=== PATIENT | female | born 1985 | race Caucasian/White ===

== ENCOUNTER 2017-08-23 19:48 | Emergency (ER) | payer BC ==
[2017-08-23 20:27] VITALS: O2SAT 98
[2017-08-23] MEDS ORDERED: Ativan 2 MG/1 ML VIAL IV ONE (20:36)
[2017-08-23] MEDS ORDERED: Ativan 2 MG/1 ML VIAL ONE (20:39)
--- NOTE | 2017-08-23 20:46 | ERPHSYRPT ---
- History of Present Illness Time Seen by Provider: 08/23/17 20:12 Historian: patient Exam Limitations: no limitations Patient Subjective Stated Complaint: pain in left arm and shoulder that started from chest pain Triage Nursing Assessment: Pt A&O x3, vitals wnl, pulses normal, states that she has pain in her left arm and shoulder that has radiated from her chest hurting, has had a brother from heart disease, pt calm, stated that she was driving home from work when the pain started, no edema, lungs clear, sinus rhythm, doesn't appear to be in any distress Physician History: Pt started c/o left arm pain radiating to her left neck 2-3 hours ago, when driving home. She denies cough, SOB, nausea, vomiting, dizziness, diaphoresis, other complaints. She had similar complaints, she underwent heart US, diagnosed with some kind of heart condition, and started on Coreg and Lisinopril, denies smoking, never smoked, denies family history of coronary disease. She states, her arm pain is not aggravated by movement or breathing, and resolved usually after few minutes. Timing/Duration: hour(s) (3) Activities at Onset: other (driving) Quality: aching Location: other (left arm) Chest Pain Radiation: neck Severity of Pain-Max: moderate Severity of Pain-Current: mild Modifying Factors: Improves With: nothing Associated Symptoms: denies symptoms Prior Chest Pain/Cardiac Workup: echocardiography Nitro Today/Relief: no nitro taken today Aspirin Treatment Today: no aspirin today Allergies/Adverse Reactions: No Known Drug Allergies Allergy (Verified 08/23/17 20:34) Home Medications: Buspirone HCl [Buspar] 10 mg PO TID PRN 08/23/17 [History] Carvedilol 3.125 mg [Coreg 3.125 MG] 3.125 mg PO BID 08/23/17 [History] Escitalopram Oxalate 10 mg PO DAILY 08/23/17 [History] Lisinopril/Hctz 20/12.5 mg [Lisinopril/ Hctz 20/12.5] 20 mg PO DAILY 08/23/17 [ History] Norethindrone [Jencycla] 0.35 mg PO DAILY 08/23/17 [History] Hx Tetanus, Diphtheria Vaccination/Date Given: Yes Hx Influenza Vaccination/Date Given: No Hx Pneumococcal Vaccination/Date Given: No - Review of Systems Constitutional: No Symptoms Respiratory: No Symptoms Cardiac: Chest Pain All Other Systems: Reviewed and Negative - Past Medical History Pertinent Past Medical History: Yes Cardiac History: Hypertension - Past Surgical History Past Surgical History: Yes Musculoskeletal: Orthopedic Surgery Female Surgical History: Section Other Surgical History: r knee - tonsils - Social History Smoking Status: Never smoker Exposure to second hand smoke: No Drug Use: none Patient Lives Alone: No - Female History Hx Last Menstrual Period: 08/21/2017 Hx Now: No - Nursing Vital Signs Nursing Vital Signs: Initial Vital Signs Temperature 98.4 F 08/23/17 20:14 Pulse Rate 67 08/23/17 20:14 Blood Pressure 130/57 08/23/17 20:14 O2 Sat by Pulse Oximetry 98 08/23/17 20:14 Pain Scale Pain Intensity 2 - Physical Exam General Appearance: no apparent distress Eye Exam: eyes nml inspection Ears, Nose, Throat Exam: normal ENT inspection Neck Exam: normal inspection, non-tender, supple, No carotid bruit, No JVD Respiratory Exam: normal breath sounds, lungs clear, airway intact, No chest tenderness Cardiovascular Exam: regular rate/rhythm, normal heart sounds, normal peripheral pulses, No murmur Gastrointestinal/Abdomen Exam: soft, normal bowel sounds Extremity Exam: normal inspection, normal range of motion, No calf tenderness, No gerald's sign Neurologic Exam: alert, oriented x 3, cooperative, normal mood/affect Skin Exam: normal color, warm, dry, No rash Lymphatic Exam: No adenopathy SpO2 Interpretation: normal SpO2: 98 Oxygen Delivery: Room Air - Course Nursing assessment & vital signs reviewed: Yes EKG Interpreted by Me: RATE (73/min), NORMAL AXIS, NORMAL INTERVALS, Non- specific ST Changes, Other (repeat Ek:48 PM unchanged) Ordered Tests: Active Orders 24 hr Category Date Time Status Printing Press Operator STAT Care 08/23/17 20:24 Active EKG-ER Only STAT Care 08/23/17 20:23 Active EKG-ER Only STAT Care 08/23/17 22:42 Active IV Insertion STAT Care 08/23/17 20:23 Active Oxygen-ED Only NASAL CANNULA 2 lpm Care 08/23/17 20:23 Active CHEST 1 VIEW (PORTABLE) Stat Exams 08/23/17 20:24 Taken CBC W DIFF Stat Lab 08/23/17 20:45 Completed CK-Creatinine Phosphokinase Stat Lab 08/23/17 20:45 Completed CMP Stat Lab 08/23/17 20:45 Completed D-DIMER QUANTITATION Stat Lab 08/23/17 20:45 Completed HCG,QUALITATIVE URINE Stat Lab 08/23/17 20:24 Uncollected NT PRO BNP Stat Lab 08/23/17 20:45 Completed PROTIME WITH INR Stat Lab 08/23/17 20:45 Completed PTT Stat Lab 08/23/17 20:45 Completed TROPONIN Q3H Lab 08/23/17 20:45 Completed TROPONIN Q3H Lab 08/23/17 23:05 Completed TROPONIN Q3H Lab 08/24/17 02:30 Ordered TROPONIN Q3H Lab 08/24/17 05:30 Ordered TROPONIN Q3H Lab 08/24/17 08:30 Ordered Urine Triage Profile Stat Lab 08/23/17 20:24 Uncollected Medication Summary Discontinued Medications Generic Name Dose Route Start Last Admin Trade Name Freq PRN Reason Stop Dose Admin Lorazepam 0.5 mg 08/23/17 20:36 08/23/17 20:41 Ativan 2 Mg/1 Ml Vial IV 08/23/17 20:37 0.5 mg STAT ONE Administration Lorazepam Confirm 08/23/17 20:39 Ativan 2 Mg/1 Ml Vial Administered 08/23/17 20:40 Dose 2 mg .ROUTE .STK-MED ONE Lab/Rad Data: Laboratory Result Diagrams 08/23/17 20:45 08/23/17 20:45 Laboratory Results 08/23/17 08/23/17 08/23/17 Range/Units 23:05 20:45 20:45 WBC (4.0-10.5) K/mm3 RBC (4.1-5.4) M/mm3 Hgb (12.0-16.0) gm/dl Hct (35-47) % MCV (78-100) fl MCH (26-32) pg MCHC (32-36) g/dl RDW (11.5-14.0) % Plt Count (150-450) K/mm3 MPV (6-9.5) fl Gran % (36.0-66.0) % Eos # (Auto) (0-0.5) Absolute Lymphs (auto) (1.0-4.6) Absolute Monos (auto) (0.0-1.3) Lymphocytes % (24.0-44.0) % Monocytes % (0.0-12.0) % Eosinophils % (0.00-5.0) % Basophils % (0.0-0.4) % Absolute Granulocytes (1.4-6.9) Basophils # (0-0.4) PT 11.3 (9.95-12.35) SECONDS INR 0.97 (0.8-3.0) APTT 33.0 (25.3-37.0) SECONDS D-Dimer 318 (215-500) ng/mL Sodium (137-145) mmol/L Potassium (3.5-5.1) mmol/L Chloride (98-107) mmol/L Carbon Dioxide (22-30) mmol/L Anion Gap (5-15) MEQ/L BUN (7-17) mg/dL Creatinine (0.52-1.04) mg/dL Estimated GFR ML/MIN Glucose (74-106) mg/dL Calcium (8.4-10.2) mg/dL Total Bilirubin (0.2-1.3) mg/dL AST (14-36) U/L ALT (0-35) U/L Alkaline Phosphatase (38-126) U/L Creatine Kinase (30-135) U/L Troponin I < 0.012 < 0.012 (0.000-0.034) ng/mL NT-Pro-B Natriuret Pep (0-450) pg/mL Serum Total Protein (6.3-8.2) g/dL Albumin (3.5-5.0) g/dL 08/23/17 08/23/17 Range/Units 20:45 20:45 WBC 12.3 H (4.0-10.5) K/mm3 RBC 5.26 (4.1-5.4) M/mm3 Hgb 11.4 L (12.0-16.0) gm/dl Hct 37.3 (35-47) % MCV 70.9 L (78-100) fl MCH 21.6 L (26-32) pg MCHC 30.6 L (32-36) g/dl RDW 16.3 H (11.5-14.0) % Plt Count 302 (150-450) K/mm3 MPV 10.1 H (6-9.5) fl Gran % 64.1 (36.0-66.0) % Eos # (Auto) 0.41 (0-0.5) Absolute Lymphs (auto) 3.31 (1.0-4.6) Absolute Monos (auto) 0.66 (0.0-1.3) Lymphocytes % 27.0 (24.0-44.0) % Monocytes % 5.4 (0.0-12.0) % Eosinophils % 3.3 (0.00-5.0) % Basophils % 0.2 (0.0-0.4) % Absolute Granulocytes 7.85 H (1.4-6.9) Basophils # 0.03 (0-0.4) PT (9.95-12.35) SECONDS INR (0.8-3.0) APTT (25.3-37.0) SECONDS D-Dimer (215-500) ng/mL Sodium 144 (137-145) mmol/L Potassium 3.8 (3.5-5.1) mmol/L Chloride 105 (98-107) mmol/L Carbon Dioxide 28 (22-30) mmol/L Anion Gap 14.8 (5-15) MEQ/L BUN 14 (7-17) mg/dL Creatinine 0.78 (0.52-1.04) mg/dL Estimated GFR > 60.0 ML/MIN Glucose 98 (74-106) mg/dL Calcium 9.4 (8.4-10.2) mg/dL Total Bilirubin < 0.10 L (0.2-1.3) mg/dL AST 18 (14-36) U/L ALT 20 (0-35) U/L Alkaline Phosphatase 92 (38-126) U/L Creatine Kinase 58 (30-135) U/L Troponin I (0.000-0.034) ng/mL NT-Pro-B Natriuret Pep 47.2 (0-450) pg/mL Serum Total Protein 7.0 (6.3-8.2) g/dL Albumin 3.8 (3.5-5.0) g/dL - Progress Progress: improved Air Movement: good Progress Note: 08/23/17 23:53 Pain has resolved, patient feels better, no chest pain or SOB, dizziness, stable. I explained our results to her and her mother, they agreed with the plan to discharge her and follow up with her PCP in 2-3 days, will prescribe Flexeril and Ultram 50 mg PO Q6h PRN for pain #10, Counseled pt/family regarding: lab results, diagnosis, need for follow-up, rad results - Departure Time of Disposition: 23:55 Departure Disposition: Home Clinical Impression: Cervical radiculopathy Condition: Stable Critical Care Time: No Referrals: NIKKI LANCASTER [Primary Care Provider] - Instructions: Atypical Chest Pain, Herniated Disc, Radiculopathy (DC) Additional Instructions: Rest x 2-3 days, apply moist heat to painful muscles, return if severe pain, severe arm weakness, numbness, or severe chest pain, shortness of breath, dizziness! Prescriptions: Cyclobenzaprine HCl [Flexeril] 10 mg PO TID 10 Days #30 tablet
[2017-08-23 20:53] LABS: BASOPHIL % 0.2 % (0.0-0.4); Basophil (Absolute #) 0.03 (0-0.4); Eosinophil % 3.3 % (0.00-5.0); Eosinophil (Absolute #) 0.41 (0-0.5); Granulocyte Absolute (ANC) 7.85 (1.4-6.9); Granulocytes % 64.1 % (36.0-66.0); Hematocrit 37.3 % (35-47); Hemoglobin 11.4 gm/dl (12.0-16.0); Lymphocyte (Absolute #) 3.31 (1.0-4.6); Mean Cell Volume 70.9 fl (78-100); Mean Corpuscular Hgb Concent. 30.6 g/dl (32-36); Mean Platelet Volume 10.1 fl (6-9.5); Monocyte (Absolute #) 0.66 (0.0-1.3); Monocytes % 5.4 % (0.0-12.0); Platelet Count 302 K/mm3 (150-450); Red Blood Count 5.26 M/mm3 (4.1-5.4); Red Cell Distribution Width 16.3 % (11.5-14.0); White Blood Count 12.3 K/mm3 (4.0-10.5)
[2017-08-23 21:09] LABS: Mean Corpuscular Hemoglobin 21.6 pg (26-32)
[2017-08-23 21:20] LABS: INR 0.97 (0.8-3.0)
[2017-08-23 21:25] LABS: ALBUMIN 3.8 g/dL (3.5-5.0); ALKALINE PHOSPHATASE 92 U/L (38-126); ANION GAP 14.8 MEQ/L (5-15); BILIRUBIN,TOTAL < 0.10 mg/dL (0.2-1.3); BLOOD UREA NITROGEN 14 mg/dL (7-17); CHLORIDE 105 mmol/L (98-107); CK-Creatinine Phosphokinase 58 U/L (30-135); Calcium 9.4 mg/dL (8.4-10.2); Carbon Dioxide 28 mmol/L (22-30); Creatinine 1 0.78 mg/dL (0.52-1.04); Glucose 98 mg/dL (74-106); Potassium 3.8 mmol/L (3.5-5.1); SGOT/AST 18 U/L (14-36); SGPT/ALT 20 U/L (0-35); SODIUM 144 mmol/L (137-145)
[2017-08-23 21:34] LABS: NT PRO BNP 47.2 pg/mL (0-450)
[2017-08-24 00:01] VITALS: BP 129/86; PULSE 77
[2017-08-24] MEDS ORDERED: ULTRAM 50 MG ONE (00:14)
[2017-08-24] MEDS ORDERED: ULTRAM 50 MG PO ONE (00:16)
--- NOTE | 2017-08-24 08:37 | XRAY ---
Indication: Chest pain. Comparison: None Portable chest demonstrate normal heart, lungs, and bony thorax.
== END 2017-08-24 00:19 | disposition home or self-care (01) ==
LOC: ED 19:48
DX: M54.12 Radiculopathy, cervical region (principal); Z79.899 Other long term (current) drug therapy
CPT/HCPCS: 36000; 36415; 71045; 80053; 82550; 83880; 84484; 85025; 85379; 85610; 85730; 93005; 93041; 96374; 99284; J2060; A9270-GY

== ENCOUNTER 2018-08-09 05:34 | Day surgery (SDC) | payer BC ==
[2018-08-09] MEDS ORDERED: DIPRIVAN 200 MG/20 ML IV ONE (05:35)
[2018-08-09] MEDS ORDERED: Ketamine HCl 50 MG/ML IV ONE (05:35)
[2018-08-09] MEDS ORDERED: Lactated Ringers 1,000 ML IV ONE (05:59)
[2018-08-09] MEDS ORDERED: Lactated Ringers 1,000 ML IV SCH (06:00)
[2018-08-09] MEDS ORDERED: VERSED SYRUP 2 MG/ML PO ONE ×2 (06:34→07:30)
--- NOTE | 2018-08-09 08:05 | OP ---
SURGERY DATE/TIME: 08/09/201815 PREOPERATIVE DIAGNOSIS: Epigastric pain. POSTOPERATIVE DIAGNOSIS: Mild gastritis. PROCEDURE: Esophagogastroduodenoscopy with cold biopsy forceps. SURGEON: Dr. Lynch. ANESTHESIA: Medications were given by the anesthesia department. BRIEF HISTORY: The patient is a 33 year old white female who reports that she has been having problems with abdominal pain for the past year. She reports it is in the left upper quadrant of her abdomen. She reports that she takes omeprazole regularly and without it she has terrible gastroesophageal reflux. The patient denies being on aspirin, denies ibuprofen or Aleve. The patient is felt the need to have endoscopic evaluation. She was appraised of the risks of the procedure including the risk of perforation, phlebitis, untoward reaction to medication, bleeding and missed lesions. The patient verbalized her understanding and desired to have the procedure performed. DESCRIPTION OF PROCEDURE: The patient was given the medications by the anesthesia department. She had continuous pulse oximetry, ECG monitoring, intermittent blood pressure monitoring and tidal CO2 monitoring during the examination. She was placed in the left lateral decubitus position. A bite block was placed. A flexible Olympus gastroscope was used to intubate the oropharynx. The scope was easily introduced in the esophagus which appeared to be normal throughout its length. The stomach was entered where normal gastric rugal folds were seen and these distended nicely with insufflation of air. The scope was passed along the greater curvature of the stomach to the antrum. The pylorus was encountered and intubated. Duodenum inspected and found to be normal. The scope is withdrawn towards the stomach. A retroflex view was obtained of the lesser curvature, fundus and cardia regions of the stomach and these appeared to be normal. The scope was then redirected towards the gastric antrum and biopsies were obtained with cold biopsy forceps to rule out the presence of Helicobacter pylori-type organisms. The scope was then removed from the patient who tolerated the procedure well and was sent back to the hospital sore[facility] in good condition.
[2018-08-09 08:13] VITALS: O2SAT 99
[2018-08-09 08:29] VITALS: BP 122/68; PULSE 90
== END 2018-08-09 08:40 | disposition home or self-care (01) ==
LOC: SDC 05:34
PROVIDERS: ATTEND Family Medicine
DX: K29.70 Gastritis, unspecified, without bleeding (principal)
CPT/HCPCS: J2704; A9270-GY

== ENCOUNTER 2019-11-01 09:47 | Emergency (ER) | payer BC ==
[2011-12-28 05:48] VITALS: BP 140/68
--- NOTE | 2019-11-01 10:01 | ERPHSYRPT ---
- History of Present Illness Time Seen by Provider: 11/01/19 10:00 Source: patient, family Exam Limitations: no limitations Physician History: This is a 34-year-old overweight female has a history of depression on Effexor who states that her symptoms have been getting worse over the last year. Last evening she began having suicidal thoughts with a plan of cutting her wrists. Patient denies any chest pain shortness of breath abdominal pain. Timing/Duration: yesterday Severity of Symptoms-Max: moderate Severity of Symptoms-Current: moderate Context related to: living circumstances Suicidal thoughts: specific plan Associated Symptoms: anxiety, depressed Previous symptoms: same symptoms as today Allergies/Adverse Reactions: No Known Drug Allergies Allergy (Verified 11/01/19 10:06) Home Medications: Carvedilol 3.125 mg [Coreg 3.125 MG] 3.125 mg PO BID 11/01/19 [History] Lisinopril/Hydrochlorothiazide [Lisinopril-Hctz 20-12.5 mg Tab] 1 each PO DAILY 11/01/19 [History] Omeprazole 40 mg PO DAILY 11/01/19 [History] Venlafaxine HCl [Effexor Xr] 150 mg PO DAILY 11/01/19 [History] Travel Risk - International Travel Have you traveled outside of the country in past 3 weeks: No - Coronavirus Screening Are you exhibiting any of the following symptoms?: No Close contact with a COVID-19 positive Pt in past 14-21 Days: No - Past Medical History Pertinent Past Medical History: Yes Neurological History: No Pertinent History ENT History: No Pertinent History Cardiac History: Hypertension Respiratory History: No Pertinent History Endocrine Medical History: No Pertinent History Musculoskeletal History: No Pertinent History GI Medical History: No Pertinent History History: No Pertinent History Psycho-Social History: No Pertinent History Female Reproductive Disorders: No Pertinent History - Past Surgical History Past Surgical History: No Neuro Surgical History: No Pertinent History Cardiac: No Pertinent History Respiratory: No Pertinent History Gastrointestinal: No Pertinent History Genitourinary: No Pertinent History Musculoskeletal: No Pertinent History Female Surgical History: No Pertinent History - Review of Systems Constitutional: No Symptoms Eyes: No Symptoms Ears, Nose, & Throat: No Symptoms Respiratory: No Symptoms Cardiac: No Symptoms Abdominal/Gastrointestinal: No Symptoms Genitourinary Symptoms: No Symptoms Musculoskeletal: No Symptoms Skin: No Symptoms Neurological: No Symptoms Psychological: No Symptoms Endocrine: No Symptoms Hematologic/Lymphatic: No Symptoms Immunological/Allergic: No Symptoms All Other Systems: Reviewed and Negative - Nursing Vital Signs Nursing Vital Signs: Initial Vital Signs Temperature 98.3 F 11/01/19 09:53 Pulse Rate 71 11/01/19 09:53 Blood Pressure 184/146 11/01/19 09:53 O2 Sat by Pulse Oximetry 98 11/01/19 09:53 Pain Scale Pain Intensity 6 - Physical Exam General Appearance: no apparent distress, alert, anxiety, obese Eyes, Ears, Nose, Throat Exam: normal ENT inspection, moist mucous membranes Neck Exam: normal inspection, non-tender, supple, full range of motion Respiratory Exam: normal breath sounds, lungs clear, airway intact, No chest tenderness, No respiratory distress Cardiovascular Exam: regular rate/rhythm, normal heart sounds, normal peripheral pulses Gastrointestinal/Abdominal Exam: soft, normal bowel sounds, No tenderness, No guarding Extremities Exam: normal inspection, normal range of motion, evidence of injury Current Suicidality: has suicide plan (Cutting her wrists) Neurological Exam: alert, normal mood/affect, calm, 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, oriented x 3, depressed affect Appearance: appropriate appearance, appropriate insight Behavior/Eye Contact/Speech: alert & cooperative Thoughts/Hallucinations: normal thought pattern, no apparent hallucination Skin Exam: normal color, warm, dry SpO2 Interpretation: normal O2 Delivery: Room Air - Course Nursing assessment & vital signs reviewed: Yes EKG Interpreted by Me: RATE (59), Sinus Rhythm, NORMAL AXIS, NORMAL INTERVALS, NORMAL QRS Ordered Tests: Active Orders 24 hr Category Date Time Status Clean Catch Urine Specimen STAT Care 11/01/19 10:06 Active EKG-ER Only STAT Care 11/01/19 10:06 Active Pulse Oximetry (ED) STAT Care 11/01/19 10:06 Active Tele-Health Consult ROUTINE Cons 11/01/19 10:06 Active ACETAMINOPHEN Stat Lab 11/01/19 10:20 Completed CBC W DIFF Stat Lab 11/01/19 10:20 Completed CMP Stat Lab 11/01/19 10:20 Completed ETHYL ALCOHOL Stat Lab 11/01/19 10:20 Completed HCG,QUALITATIVE URINE Stat Lab 11/01/19 10:38 Completed SALICYLATE Stat Lab 11/01/19 10:20 Completed UA W/RFX UR CULTURE Stat Lab 11/01/19 10:38 Completed Urine Triage Profile Stat Lab 11/01/19 10:38 Completed Medication Summary Discontinued Medications Generic Name Dose Route Start Last Admin Trade Name Merissa PRN Reason Stop Dose Admin Acetaminophen 650 mg 11/01/19 12:04 11/01/19 12:05 Tylenol 325 Mg PO 11/01/19 12:05 650 mg STAT STA Administration Acetaminophen Confirm 11/01/19 12:05 Tylenol 325 Mg Administered 11/01/19 12:06 Dose 650 mg .ROUTE .STK-MED ONE Lab/Rad Data: Laboratory Result Diagrams 11/01/19 10:20 11/01/19 10:20 Laboratory Results 11/01/19 11/01/19 11/01/19 Range/Units 10:38 10:38 10:38 WBC (4.0-10.5) K/mm3 RBC (4.1-5.4) M/mm3 Hgb (12.0-16.0) gm/dl Hct (35-47) % MCV (78-100) fl MCH (26-32) pg MCHC (32-36) g/dl RDW (11.5-14.0) % Plt Count (150-450) K/mm3 MPV (7.5-11.0) fl Gran % (36.0-66.0) % Eos # (Auto) (0-0.5) Absolute Lymphs (auto) (1.0-4.6) Absolute Monos (auto) (0.0-1.3) Lymphocytes % (24.0-44.0) % Monocytes % (0.0-12.0) % Eosinophils % (0.00-5.0) % Basophils % (0.0-0.4) % Absolute Granulocytes (1.4-6.9) Basophils # (0-0.4) Sodium (137-145) mmol/L Potassium (3.5-5.1) mmol/L Chloride (98-107) mmol/L Carbon Dioxide (22-30) mmol/L Anion Gap (5-15) MEQ/L BUN (7-17) mg/dL Creatinine (0.52-1.04) mg/dL Estimated GFR ML/MIN Glucose (74-106) mg/dL Calcium (8.4-10.2) mg/dL Total Bilirubin (0.2-1.3) mg/dL AST (14-36) U/L ALT (0-35) U/L Alkaline Phosphatase (38-126) U/L Serum Total Protein (6.3-8.2) g/dL Albumin (3.5-5.0) g/dL Urine Color YELLOW (YELLOW) Urine Appearance SLIGHTLY CLOUDY (CLEAR) Urine pH 6.0 (5-6) Ur Specific [place] 1.027 (1.005-1.025) Urine Protein NEGATIVE (Negative) Urine Ketones NEGATIVE (NEGATIVE) Urine Blood NEGATIVE (0-5) Mauricio/ul Urine Nitrite NEGATIVE (NEGATIVE) Urine Bilirubin NEGATIVE (NEGATIVE) Urine Urobilinogen 4 (0-1) mg/dL Ur Leukocyte Esterase NEGATIVE (NEGATIVE) Urine WBC (Auto) 0-2 (0-5) /HPF Urine RBC (Auto) 0-2 (0-2) /HPF U Epithel Cells (Auto) RARE (FEW) /HPF Urine Bacteria (Auto) NONE (NEGATIVE) /HPF Urine Mucus (Auto) MODERATE (NEGATIVE) /HPF Urine Culture Reflexed NO (NO) Urine Glucose NEGATIVE (NEGATIVE) mg/dL Urine HCG, Qual NEGATIVE (Negative) Salicylates (2-20) mg/dL Urine Opiates Level NEGATIVE (NEGATIVE) Ur Methadone NEGATIVE (NEGATIVE) Acetaminophen (10-30) ug/ml Urine Barbiturates NEGATIVE (NEGATIVE) Ur Phencyclidine (PCP) NEGATIVE (NEGATIVE) Urine Amphetamine NEGATIVE (NEGATIVE) U Benzodiazepine Level NEGATIVE (NEGATIVE) Urine Cocaine NEGATIVE (NEGATIVE) Urine Marijuana (THC) POSITIVE (NEGATIVE) Ethyl Alcohol (0-10) mg/dL Slides for Path Review 11/01/19 11/01/19 Range/Units 10:20 10:20 WBC 7.5 (4.0-10.5) K/mm3 RBC 5.50 H (4.1-5.4) M/mm3 Hgb 11.9 L (12.0-16.0) gm/dl Hct 40.3 (35-47) % MCV 73.3 L (78-100) fl MCH 21.6 L (26-32) pg MCHC 29.5 L (32-36) g/dl RDW 16.1 H (11.5-14.0) % Plt Count 301 (150-450) K/mm3 MPV 10.9 (7.5-11.0) fl Gran % 64.4 (36.0-66.0) % Eos # (Auto) 0.25 (0-0.5) Absolute Lymphs (auto) 1.96 (1.0-4.6) Absolute Monos (auto) 0.43 (0.0-1.3) Lymphocytes % 26.1 (24.0-44.0) % Monocytes % 5.7 (0.0-12.0) % Eosinophils % 3.3 (0.00-5.0) % Basophils % 0.5 (0.0-0.4) % Absolute Granulocytes 4.83 (1.4-6.9) Basophils # 0.04 (0-0.4) Sodium 140 (137-145) mmol/L Potassium 3.7 (3.5-5.1) mmol/L Chloride 104 (98-107) mmol/L Carbon Dioxide 27 (22-30) mmol/L Anion Gap 13.1 (5-15) MEQ/L BUN 8 (7-17) mg/dL Creatinine 0.65 (0.52-1.04) mg/dL Estimated GFR > 60.0 ML/MIN Glucose 97 (74-106) mg/dL Calcium 9.1 (8.4-10.2) mg/dL Total Bilirubin 0.60 (0.2-1.3) mg/dL AST 34 (14-36) U/L ALT 39 H (0-35) U/L Alkaline Phosphatase 93 (38-126) U/L Serum Total Protein 7.4 (6.3-8.2) g/dL Albumin 4.0 (3.5-5.0) g/dL Urine Color (YELLOW) Urine Appearance (CLEAR) Urine pH (5-6) Ur Specific [place] (1.005-1.025) Urine Protein (Negative) Urine Ketones (NEGATIVE) Urine Blood (0-5) Mauricio/ul Urine Nitrite (NEGATIVE) Urine Bilirubin (NEGATIVE) Urine Urobilinogen (0-1) mg/dL Ur Leukocyte Esterase (NEGATIVE) Urine WBC (Auto) (0-5) /HPF Urine RBC (Auto) (0-2) /HPF U Epithel Cells (Auto) (FEW) /HPF Urine Bacteria (Auto) (NEGATIVE) /HPF Urine Mucus (Auto) (NEGATIVE) /HPF Urine Culture Reflexed (NO) Urine Glucose (NEGATIVE) mg/dL Urine HCG, Qual (Negative) Salicylates < 1.0 L (2-20) mg/dL Urine Opiates Level (NEGATIVE) Ur Methadone (NEGATIVE) Acetaminophen < 10 L (10-30) ug/ml Urine Barbiturates (NEGATIVE) Ur Phencyclidine (PCP) (NEGATIVE) Urine Amphetamine (NEGATIVE) U Benzodiazepine Level (NEGATIVE) Urine Cocaine (NEGATIVE) Urine Marijuana (THC) (NEGATIVE) Ethyl Alcohol < 10 (0-10) mg/dL Slides for Path Review YES - Progress Progress: unchanged Progress Note: 11/01/19 13:20 Chantelle mental health counselor from [facility] recommends inpt management. dx of major depression and suicidal ideation. 11/01/19 15:55 john accepts pt for transfer. pt is stable and safe to be transported via private vehicle to the inpt center by her father. Counseled pt/family regarding: lab results, diagnosis - Departure Departure Disposition: Transfer Clinical Impression: Suicidal ideation, Major depression Condition: Stable Critical Care Time: No Referrals: ZAHRA DREW [Primary Care Provider] -
[2019-11-01 10:06] VITALS: O2SAT 98
[2019-11-01 10:41] LABS: Absolute Neutrophil Ct (ANC) 4.83 (1.4-6.9); BASOPHIL % 0.5 % (0.0-0.4); Basophil (Absolute #) 0.04 (0-0.4); Eosinophil % 3.3 % (0.00-5.0); Eosinophil (Absolute #) 0.25 (0-0.5); Hematocrit 40.3 % (35-47); Hemoglobin 11.9 gm/dl (12.0-16.0); Lymphocyte (Absolute #) 1.96 (1.0-4.6); Lymphocytes % 26.1 % (24.0-44.0); Mean Cell Volume 73.3 fl (78-100); Mean Corpuscular Hemoglobin 21.6 pg (26-32); Mean Corpuscular Hgb Concent. 29.5 g/dl (32-36); Mean Platelet Volume 10.9 fl (7.5-11.0); Monocyte (Absolute #) 0.43 (0.0-1.3); Monocytes % 5.7 % (0.0-12.0); Neutrophil % 64.4 % (36.0-66.0); Platelet Count 301 K/mm3 (150-450); Red Cell Distribution Width 16.1 % (11.5-14.0); White Blood Count 7.5 K/mm3 (4.0-10.5)
[2019-11-01 10:51] LABS: ALKALINE PHOSPHATASE 93 U/L (38-126); ANION GAP 13.1 MEQ/L (5-15); BLOOD UREA NITROGEN 8 mg/dL (7-17); CHLORIDE 104 mmol/L (98-107); Calcium 9.1 mg/dL (8.4-10.2); Carbon Dioxide 27 mmol/L (22-30); Creatinine 1 0.65 mg/dL (0.52-1.04); Glucose 97 mg/dL (74-106); Potassium 3.7 mmol/L (3.5-5.1); SGOT/AST 34 U/L (14-36); SGPT/ALT 39 U/L (0-35); SODIUM 140 mmol/L (137-145); Total Protein 7.4 g/dL (6.3-8.2)
[2019-11-01 10:52] LABS: Appearance SLIGHTLY CLOUDY (CLEAR); Bilirubin NEGATIVE (NEGATIVE); Blood NEGATIVE Ery/ul (0-5); Epithelial Cells RARE /HPF (FEW); Glucose NEGATIVE (NEGATIVE); Ketones NEGATIVE (NEGATIVE); Leukocyte Esterase NEGATIVE (NEGATIVE); Mucus MODERATE /HPF (NEGATIVE); Nitrite NEGATIVE (NEGATIVE); Protein,Urine Dip NEGATIVE (Negative); RBC 0-2 /HPF (0-2); Specific Gravity 1.027 (1.005-1.025); Urobilinogen 4 mg/dL (0-1); WBC 0-2 /HPF (0-5)
[2019-11-01 10:53] LABS: ACETAMINOPHEN < 10 ug/ml (10-30); ETHYL ALCOHOL < 10 mg/dL (0-10); SALICYLATE < 1.0 mg/dL (2-20)
[2019-11-01 11:34] LABS: Amphetamine,Urine NEGATIVE (NEGATIVE); Barbiturate,Urine NEGATIVE (NEGATIVE); Benzodiazepine,Urine NEGATIVE (NEGATIVE); Cocaine,Urine NEGATIVE (NEGATIVE); Methadone,Urine NEGATIVE (NEGATIVE); Opiate,Urine NEGATIVE (NEGATIVE); PCP,Urine NEGATIVE (NEGATIVE); THC,Urine POSITIVE (NEGATIVE)
[2019-11-01] MEDS ORDERED: TYLENOL 325 MG PO STA (12:04)
[2019-11-01] MEDS ORDERED: TYLENOL 325 MG ONE (12:05)
[2019-11-01 14:34] VITALS: BP 154/107
[2019-11-01 15:20] LABS: Slide Review 1 YES
[2019-11-01 15:23] VITALS: PULSE 74
== END 2019-11-01 15:58 ==
LOC: ED 09:47 → MERGE 09:47 → ED 15:58
DX: R45.851 Suicidal ideations (principal); F32.9 Major depressive disorder, single episode, unspecified; F41.9 Anxiety disorder, unspecified; Z79.899 Other long term (current) drug therapy
CPT/HCPCS: 36415; 80053; 80307; 81001; 84703; 85025; 93005; 94760; 99284; A9270-GY; G0480